=== PATIENT | female | born 2000 | race Caucasian/White ===

== ENCOUNTER 2022-10-11 15:30 | Emergency (ER) | payer OTHER ==
[~2022-10-11] VITALS: Ht 180.3 cm; Wt 61.2 kg
[2022-10-11] MEDS ORDERED: IV NORMAL SALINE 1000 ML BAG IV ONE (15:45)
[2022-10-11 16:00] LABS: HEMATOCRIT 39.6 % (31.2-41.9); PLATELET COUNT (AUTO) 213 K/uL (179-408)
[2022-10-11 16:13] LABS: *BILIRUBIN,URIN NEGATIVE (NEGATIVE); *BLOOD, URINE NEGATIVE (NEGATIVE); *CLARITY,URINE CLOUDY (CLEAR); *COLOR,URINE YELLOW (YELLOW); *KETONES,URINE NEGATIVE (NEGATIVE); *UROBILINOGEN,URINE 0.2 E.U./dl (NORMAL); LEUKOCYTE ESTERASE ,URINE NEGATIVE (NEGATIVE); NITRITE, URINE NEGATIVE (NEGATIVE); PH,URINE 8.5 (5.0-8.0); UGLUCOSE NEGATIVE (NEGATIVE)
[2022-10-11 16:17] LABS: CARBON DIOXIDE 28 mmol/L (21-32); CHLORIDE 102 mmol/L (98-107); CREATININE 0.9 mg/dL (0.6-1.3); ETHANOL < 3 MG/DL (0-0); GLUCOSE 107 mg/dL (74-106); UREA NITROGEN, BLOOD 11 mg/dL (7-18)
[2022-10-11 16:25] LABS: ALANINE AMINOTRANSFERASE 16 U/L (14-59); ALKALINE PHOSPHATASE 79 U/L (50-136); ASPARTATE AMINOTRANSFERASE 13 U/L (15-37); BILIRUBIN,DIRECT < 0.1 mg/dL (0.0-0.2); BILIRUBIN,TOTAL 0.2 mg/dL (0.2-1.0); TOTAL PROTEIN, SERUM 7.6 g/dL (6.4-8.2)
[2022-10-11 16:35] LABS: RBC,URINE NONE SEEN /HPF (0-3); SQUAMOUS EPITHELIAL CELL,UR FEW /HPF (NONE SEEN); URINE AMORPHOUS URATE MODERATE /HPF; WBC,URINE NONE SEEN /HPF (0-3)
[2022-10-11 16:36] LABS: BACTERIA,URINE FEW /HPF (NONE SEEN)
[2022-10-11 16:44] LABS: *URINE HCG, QUAL NEGATIVE (NEGATIVE)
[2022-10-11 18:03] LABS: *AMPHETAMINE, URINE NEGATIVE (NEGATIVE); *CANNABINOID, URINE POSITIVE (NEGATIVE); *COCCAINE, URINE NEGATIVE (NEGATIVE); *OPIATE, URINE NEGATIVE (NEGATIVE); *PHENCYCLIDINE SCREEN,URINE NEGATIVE (NEGATIVE)
--- NOTE | 2022-10-11 18:15 | NUR ---
Pt BIBA with c/o syncope. Pt is afebrile, denies n/v, headache. Pt stated that it was the first time it happened to her. Seen by [facility] for MSE.
[2022-10-11 18:16] VITALS: BP 126/85
--- NOTE | 2022-10-11 18:16 | NUR ---
Patient discharged to home in stable condition. Written and verbal after care instructions given. Patient verbalizes understanding of instructions. Stressed follow up or return to ER for worsening s/s.
== END 2022-10-11 18:17 | disposition home or self-care (01) ==
LOC: ER 15:30
DX: R55 Syncope and collapse (principal); R00.1 Bradycardia, unspecified
CPT/HCPCS: 80076; 80048; 81001; 84703; 85025; 87040 ×2; 84484; 36415; 93005; 71045; 99285; 96360; 83605; 80320; 80307; J7040; A4663; G0480